=== PATIENT | female | born 1980 | race Caucasian/White ===

== ENCOUNTER 2021-11-30 20:39 | Emergency (ER) | payer BC, OTHER ==
--- NOTE | 2021-11-30 21:23 | RAD REPORT ---
EXAM DESCRIPTION: CT - Head Brain Wo Cont - 11/30/2021 9:12 pm CLINICAL HISTORY: Syncope, simple, normal neuro exam Headache, drowsiness COMPARISON: No comparisons TECHNIQUE: All CT scans are performed using dose optimization technique as appropriate and may inclu de automated exposure control or mA/KV adjustment according to patient size. FINDINGS: No intracranial hemorrhage, hydrocephalus or extra-axial fluid collection.No areas of brai n edema or evidence of midline shift. The paranasal sinuses and mastoids are clear. The calvarium is intact. IMPRESSION: No acute intracranial abnormality.
--- NOTE | 2021-11-30 21:24 | RAD REPORT ---
EXAM DESCRIPTION: RAD - Chest Single View - 11/30/2021 9:17 pm CLINICAL HISTORY: TRAUMA Chest pain. COMPARISON: No comparisons FINDINGS: Portable technique limits examination quality. The lungs are grossly clear. The heart is normal in size. No displaced fractures. IMPRESSION: No acute intrathoracic process suspected.
[2021-11-30 22:09] LABS: Hematocrit 35.6 % (36.0-45.0); Lymphocytes % 8.5 % (15.3-44.8); MCV 81.3 fL (80-100); MPV 7.4 fL (7.6-11.3); RBC Red Blood Cell Count 4.37 M/uL (3.86-4.86)
[2021-11-30 22:10] LABS: Absolute Lymphocytes (CBC) 0.8 K/uL (0.7-4.9)
[2021-11-30 22:21] LABS: Protime INR 1.03
[2021-11-30 22:34] LABS: ALT/SGPT 26 U/L (12-78); AST/SGOT 15 U/L (15-37); Albumin 4.3 g/dL (3.4-5.0); Alkaline Phosphatase 85 U/L (45-117); BUN Blood Urea Nitrogen 37 mg/dL (7-18); Bicarbonate 24 mmol/L (21-32); Bilirubin Direct 0.2 mg/dL (0-0.2); Bilirubin Total 0.5 mg/dL (0.2-1.0); CKMB Creatine Kinase MB < 1.0 ng/mL (1.0-3.6); Creatine Phosphokinase 101 U/L (26-192); Glomerular Filtration Rate 44 ml/min (=/>90); Glucose Level 113 mg/dL (74-106); Lipase 297 U/L (73-393); Magnesium 2.3 mg/dL (1.8-2.4); Protein, Total 7.7 g/dL (6.4-8.2); Sodium Level 133 mmol/L (136-145)
[2021-11-30 22:36] LABS: Potassium 2.9 mmol/L (3.5-5.1)
[2021-11-30 23:18] LABS: Urine Blood 1+ (Negative); Urine Glucose Negative (Negative); Urine Protein Trace (Negative); Urine pH 5.5 (5.0-7.0)
[2021-11-30] MEDS ORDERED: POTASSIUM CL SA 10 MEQ TAB PO ONE (23:27)
[2021-12-01 02:12] LABS: Potassium 3.3 mmol/L (3.5-5.1); Troponin High Sensitivity 5.8 pg/mL (<58.9)
--- NOTE | 2021-12-01 02:17 | EDPHYS ---
Physician Documentation [facility] Name: Beronica Lopez Age: 41 yrs Sex: Female : 1980 Arrival Date: 11/30/2021 Time: 20:42 Bed 4 Private MD: ED Physician Danny Whitten HPI: 11/30 21:02 This 41 yrs old Female presents to ER via Ambulatory with complaints of Passed Out sp3 Prior To Arrival, Head Injury-Adult, Syncope. 21:02 41-year-old female with a history of hypertension, anxiety, who has had recent blood sp3 pressure medication changes including increasing doses of amlodipine presents to the ED for syncope prior to arrival with loss of consciousness and mild forehead injury witnessed by family. No seizure activity reported. Patient had no presyncopal symptoms including headache, neck pain, chest pain, shortness breath, abdominal pain, nausea, vomiting, diarrhea, paresthesias, focal weakness, confusion, altered speech, any other significant findings on ROS. Currently patient feels "back to normal" is of no chest pain or headache currently. Patient states that she has been taking adequate p.o. intake and has been having urine output. There was no loss of bowel or bladder control reported no lacerations on the tongue or other oral injury.. Historical: - Allergies: 20:54 No Known Allergies; ld1 - Home Meds: 20:54 amlodipine 10 mg tab 1 tab once daily [Active]; venlafaxine 37.5 mg oral cp24 1 cap ld1 once daily [Active]; meloxicam 15 mg oral TbDi 1 tab once daily [Active]; lisinopril 40 mg Oral tab 1 tab once daily [Active]; chlorthalidone 25 mg Oral tab 1 tab once daily [Active]; - PMHx: 20:54 Hypertensive disorder; ld1 - PSHx: 20:54 None; ld1 - Immunization history:: Adult Immunizations up to date, Client reports having NOT received the Covid vaccine. - Social history:: Smoking status: Patient denies any tobacco usage or history of. Patient/guardian denies using alcohol. ROS: 21:04 Constitutional: Negative for fever, chills, and weight loss, Eyes: Negative for injury, sp3 pain, redness, and discharge, Neck: Negative for injury, pain, and swelling, Cardiovascular: Negative for chest pain, palpitations, and edema, Respiratory: Negative for shortness of breath, cough, wheezing, and pleuritic chest pain, Abdomen/GI: Negative for abdominal pain, nausea, vomiting, diarrhea, and constipation, Back: Negative for injury and pain, MS/Extremity: Negative for injury and deformity, Skin: Negative for injury, rash, and discoloration, Psych: Negative for depression, anxiety, suicide ideation, homicidal ideation, and hallucinations, Allergy/Immunology: Negative for hives, rash, and allergies, Endocrine: Negative for neck swelling, polydipsia, polyuria, polyphagia, and marked weight changes. 21:04 All other systems are negative. Exam: 21:04 Constitutional: This is a well developed, well nourished patient who is awake, alert, sp3 and in no acute distress. Head/Face: Normocephalic, atraumatic. Eyes: Pupils equal round and reactive to light, extra-ocular motions intact. Lids and lashes normal. Conjunctiva and sclera are non-icteric and not injected. Cornea within normal limits. Periorbital areas with no swelling, redness, or edema. ENT: Nares patent. No nasal discharge, no septal abnormalities noted. External auditory canals are clear. Oropharynx with no redness, swelling, or masses, exudates, or evidence of obstruction, uvula midline. Mucous membranes moist. Neck: Trachea midline, no thyromegaly or masses palpated, and no cervical lymphadenopathy. Supple, full range of motion without nuchal rigidity, or vertebral point tenderness. No Meningismus. Chest/axilla: Normal chest wall appearance and motion. Nontender with no deformity. No lesions are appreciated. Cardiovascular: Regular rate and rhythm with a normal S1 and S2. No gallops, murmurs, or rubs. Normal PMI, no JVD. No pulse deficits. Respiratory: Lungs have equal breath sounds bilaterally, clear to auscultation and percussion. No rales, rhonchi or wheezes noted. No increased work of breathing, no retractions or nasal flaring. Abdomen/GI: Soft, non-tender, with normal bowel sounds. No distension or tympany. No guarding or rebound. No evidence of tenderness throughout. Back: No spinal tenderness. No costovertebral tenderness. Full range of motion. Skin: Warm, dry with normal turgor. Normal color with no rashes, no lesions, and no evidence of cellulitis. MS/ Extremity: Pulses equal, no cyanosis. Neurovascular intact. Full, normal range of motion. Neuro: Awake and alert, GCS 15, oriented to person, place, time, and situation. Cranial nerves II-XII grossly intact. Motor strength 5/5 in all extremities. Sensory grossly intact. Cerebellar exam normal. Normal gait. Psych: Awake, alert, with orientation to person, place and time. Behavior, mood, and affect are within normal limits. 21:04 ECG was reviewed by the Attending Physician. EKG demonstrates normal sinus rhythm at 75 sp3 bpm with normal intervals, normal axis, nonspecific ST/T changes leads III, aVF and V3. Vital Signs: 20:51 BP 110 / 60; Pulse 81; Resp 20; Temp 98.6(TE); Pulse Ox 100% on R/A; Weight 99.79 kg; ld1 Height 5 ft. 3 in. (160.02 cm); Pain 0/10; 22:18 BP 119 / 74 Sitting (auto/); Pulse 71; aa9 22:20 BP 115 / 62 LA Supine (auto/); Pulse 65; aa9 22:23 BP 107 / 61 Standing (auto/); Pulse 87; aa9 07/01 00:15 BP 125 / 75; Pulse 64; Resp 20 S; Pulse Ox 97% on R/A; as6 01:03 BP 136 / 78; Pulse 67; Resp 16 S; Pulse Ox 100% on R/A; as6 02:24 BP 140 / 76; Pulse 67; Resp 17 S; Pulse Ox 99% on R/A; as6 06 20:51 Body Mass Index 38.97 (99.79 kg, 160.02 cm) ld1 Pk Coma Score: 11/30 20:51 Eye Response: spontaneous(4). Verbal Response: oriented(5). Motor Response: obeys ld1 commands(6). Total: 15. MDM: 20:53 Patient medically screened. sp3 21:04 Data reviewed: vital signs, nurses notes, EKG. sp3 21:05 ED course: 41-year-old female with syncope now resolved. We will work patient up sp3 including cardiac markers, routine labs, EKG, chest x-ray, CT scan of the head, and general observation. Normal neurological exam currently with no additional symptoms. Potential discharge if work-up is negative and patient remains asymptomatic.. 23:06 ED course: Patient's chemistry demonstrates hypokalemia at 2.9 and mild depression and sp3 sodium at 133. Creatinine is 1.5 and all of this demonstrates clear dehydration and lack of electrolyte consumption. We will hydrate and replenish potassium and recheck chemistries as well as repeat troponin at 1 AM and if patient is improved and troponin remains negative will discharge patient home to PCP follow-up.. 12/01 02:14 ED course: Daniel chemistries demonstrate normalized sodium and creatinine. Potassium sp3 still mildly depressed and we will give another 40 mEq of potassium p.o. prior to discharge. Repeat troponin negative. No other criteria met for admission and we will discharge patient home with PCP follow-up.. 11/30 21:00 Order name: Basic Metabolic Panel; Complete Time: 22:53 3 11/30 21:00 Order name: CBC with Diff; Complete Time: 22:25 3 11/30 21:00 Order name: CPK; Complete Time: 22:53 sp3 11/30 21:00 Order name: Ckmb; Complete Time: 22:53 3 11/30 21:00 Order name: Hepatic Function; Complete Time: 22:53 3 11/30 21:00 Order name: Lipase; Complete Time: 22:53 sp3 11/30 21:00 Order name: Magnesium; Complete Time: 22:53 3 11/30 21:00 Order name: Protime (+inr); Complete Time: 22:25 3 11/30 21:00 Order name: Ptt, Activated; Complete Time: 22:25 sp3 11/30 21:00 Order name: CT Head Brain wo Cont; Complete Time: 21:42 sp3 11/30 23:06 Order name: Chem 7: 1 AM; Complete Time: 02:14 sp3 11/30 23:06 Order name: Troponin High Sensitivity: 1 AM; Complete Time: 02:14 sp3 11/30 23:18 Order name: Urine Dipstick-Ancillary; Complete Time: 00:50 EDMS 11/30 23:32 Order name: Urine --Ancillary (enter results); Complete Time: 00:50 wm 11/30 21:00 Order name: EKG; Complete Time: 21:01 sp3 11/30 21:00 Order name: Cardiac monitoring; Complete Time: 21:02 sp3 11/30 21:00 Order name: EKG - Nurse/Tech; Complete Time: 21:02 sp3 11/30 21:00 Order name: IV Saline Lock; Complete Time: 21:44 sp3 11/30 21:00 Order name: Labs collected and sent; Complete Time: 22:11 sp3 11/30 21:00 Order name: NPO; Complete Time: 21:02 sp3 11/30 21:00 Order name: O2 Per Protocol; Complete Time: 21:02 sp3 11/30 21:00 Order name: O2 Sat Monitoring; Complete Time: 21: sp3 11/30 21:00 Order name: Urine Dipstick-Ancillary (obtain specimen); Complete Time: 23:20 sp3 11/30 21:00 Order name: XRAY Chest (1 view); Complete Time: 21:42 sp3 11/30 21:06 Order name: Orthostatics; Complete Time: 22:26 sp3 Administered Medications: 11/30 23:29 Drug: NS 0.9% 1000 ml Route: IV; Rate: 1 bolus; Site: left antecubital; 12/01 02:24 Follow up: Response: No adverse reaction; IV Status: Completed infusion; IV Intake: as6 1000ml 11/30 23:30 Drug: Potassium Chloride 40 mEq Route: PO; 9 12/01 02:24 Follow up: Response: No adverse reaction as6 02:21 Drug: Potassium Chloride 40 mEq Route: PO; as6 02:25 Follow up: Response: No adverse reaction as6 Disposition Summary: 12/01/21 02:17 Discharge Ordered Location: Home sp3 Condition: Stable sp3 Diagnosis - Syncope, Hypokalemia, Dehydration sp3 Followup: sp3 - With: Private Physician - When: Upon discharge from the Emergency Department - Reason: Continuance of care, Re-evaluation by your physician Discharge Instructions: - Discharge Summary Sheet sp3 - Dehydration, Adult sp3 - Syncope sp3 Forms: - Medication Reconciliation Form sp3 - Thank You Letter sp3 - Antibiotic Education sp3 - Prescription Opioid Use sp3 Signatures: Dispatcher [employer] EDMelony Garcia RN RN ld1 Danny Whitten MD MD sp3 Robert Rios, RN RN as6 Brianna Raymundo PA PA sb3 Shante La, RN RN aa9
--- NOTE | 2021-12-01 02:17 | ER ---
Nurse's Notes [facility] Name: Beronica Lopez Age: 41 yrs Sex: Female : 1980 Arrival Date: 11/30/2021 Time: 20:42 Bed 4 Private MD: Diagnosis: Syncope, Hypokalemia, Dehydration Presentation: 11/30 20:51 Chief complaint: Patient states: I was outside this evening, I began to feel ld1 sick/lightheaded, my vision began to turn black - pt fell and hit front of face - left eye socket. Reports possible syncope. Coronavirus screen: At this time, the client does not indicate any symptoms associated with coronavirus-19. Ebola Screen: No symptoms or risks identified at this time. Mechanism of Injury: resulted from a fall, from a standing position. Initial Sepsis Screen: Does the patient meet any 2 criteria? No. Patient's initial sepsis screen is negative. Does the patient have a suspected source of infection? No. Patient's initial sepsis screen is negative. Risk Assessment: Do you want to hurt yourself or someone else? Patient reports no desire to harm self or others. 20:51 Method Of Arrival: Ambulatory ld1 20:51 Acuity: JEFFREY 3 ld1 12/01 02:25 Onset of symptoms was November 30, 2021. as6 Triage Assessment: 11/30 20:54 General: Appears in no apparent distress. comfortable, Behavior is calm, cooperative, ld1 appropriate for age. Pain: Denies pain. EENT: No signs and/or symptoms were reported regarding the EENT system. Neuro: Level of Consciousness is awake, alert, obeys commands, Oriented to person, place, time, situation, Reports dizziness, a syncopal episode. Cardiovascular: Capillary refill < 3 seconds Patient's skin is warm and dry. Rhythm is sinus rhythm. Respiratory: Airway is patent Respiratory effort is even, unlabored. GI: Abdomen is round non-distended. : No signs and/or symptoms were reported regarding the genitourinary system. Derm: No signs and/or symptoms reported regarding the dermatologic system. Musculoskeletal: No signs and/or symptoms reported regarding the musculoskeletal system. Historical: - Allergies: 20:54 No Known Allergies; ld1 - Home Meds: 20:54 amlodipine 10 mg tab 1 tab once daily [Active]; venlafaxine 37.5 mg oral cp24 1 cap ld1 once daily [Active]; meloxicam 15 mg oral TbDi 1 tab once daily [Active]; lisinopril 40 mg Oral tab 1 tab once daily [Active]; chlorthalidone 25 mg Oral tab 1 tab once daily [Active]; - PMHx: 20:54 Hypertensive disorder; ld1 - PSHx: 20:54 None; ld1 - Immunization history:: Adult Immunizations up to date, Client reports having NOT received the Covid vaccine. - Social history:: Smoking status: Patient denies any tobacco usage or history of. Patient/guardian denies using alcohol. Screenin:01 Abuse screen: Denies threats or abuse. Denies injuries from another. Nutritional aa9 screening: No deficits noted. Tuberculosis screening: No symptoms or risk factors identified. 12/01 01:04 Fall Risk None identified. as6 Assessment: 11/30 21:01 General: Appears in no apparent distress. uncomfortable, Behavior is calm, cooperative, aa9 anxious, Reports "feeling uncomfortable". General:. Pain: Denies pain. Musculoskeletal:. 21:01 General: States "I was standing outside at around 6:45 PM, I felt lightheaded and aa9 everything went black, I hit my left eye socket and left knee.". 12/01 01:03 Reassessment: Patient appears in no apparent distress at this time. as6 Vital Signs: 11/30 20:51 BP 110 / 60; Pulse 81; Resp 20; Temp 98.6(TE); Pulse Ox 100% on R/A; Weight 99.79 kg; ld1 Height 5 ft. 3 in. (160.02 cm); Pain 0/10; 22:18 BP 119 / 74 Sitting (auto/); Pulse 71; aa9 22:20 BP 115 / 62 LA Supine (auto/); Pulse 65; aa9 22:23 BP 107 / 61 Standing (auto/); Pulse 87; aa9 12/01 00:15 BP 125 / 75; Pulse 64; Resp 20 S; Pulse Ox 97% on R/A; as6 01:03 BP 136 / 78; Pulse 67; Resp 16 S; Pulse Ox 100% on R/A; as6 02:24 BP 140 / 76; Pulse 67; Resp 17 S; Pulse Ox 99% on R/A; as6 11/30 20:51 Body Mass Index 38.97 (99.79 kg, 160.02 cm) ld1 [place] Coma Score: 11/30 20:51 Eye Response: spontaneous(4). Verbal Response: oriented(5). Motor Response: obeys ld1 commands(6). Total: 15. ED Course: 20:42 Patient arrived in ED. bp1 20:46 Robert Rios, CARLOS is Primary Nurse. as6 20:46 Danny Whitten MD is Attending Physician. sp3 20:54 Triage completed. ld1 20:54 Arm band placed on right wrist. ld1 21:14 CT Head Brain wo Cont In Process Unspecified. EDMS 21:18 XRAY Chest (1 view) In Process Unspecified. EDMS 21:47 Inserted saline lock: 20 gauge in left antecubital area, using aseptic technique. as6 22:36 Notified ED physician of a critical lab result(s). Potassium 2.9. vc1 12/01 01:04 Bed in low position. Call light in reach. Side rails up X 1. Client placed on as6 continuous cardiac and pulse oximetry monitoring. NIBP monitoring applied. Warm blanket given. 02:25 No provider procedures requiring assistance completed. IV discontinued, intact, as6 bleeding controlled, No redness/swelling at site. Pressure dressing applied. Administered Medications: 11/30 23:29 Drug: NS 0.9% 1000 ml Route: IV; Rate: 1 bolus; Site: left antecubital; aa9 12/01 02:24 Follow up: Response: No adverse reaction; IV Status: Completed infusion; IV Intake: as6 1000ml 11/30 23:30 Drug: Potassium Chloride 40 mEq Route: PO; aa9 12/01 02:24 Follow up: Response: No adverse reaction as6 02:21 Drug: Potassium Chloride 40 mEq Route: PO; as6 02:25 Follow up: Response: No adverse reaction as6 Medication: 02:25 VIS not applicable for this client. as6 Intake: 02:24 IV: 1000ml; Total: 1000ml. as6 Outcome: 02:17 Discharge ordered by . sp3 02:25 Discharged to home ambulatory, with family. as6 02:25 Condition: stable 02:25 Discharge instructions given to patient, Instructed on discharge instructions, follow up and referral plans. Demonstrated understanding of instructions, follow-up care. 02:26 Patient left the ED. as6 Signatures: Dispatcher [employer] EDMS Winifred De León Lauren, RN RN ld1 Danny Whitten MD MD sp3 Robert Rios RN RN as6 Joie Ziegler RN RN vc1 Shante La RN RN aa9
[2021-12-01] MEDS ORDERED: POTASSIUM CL SA 10 MEQ TAB PO ONE (02:23)
[2021-12-01 03:30] VITALS: TEMP 98.6
[2021-12-01 03:39] VITALS: BP 140/76; O2SAT 99
--- NOTE | 2021-12-01 09:49 | EKG ---
Test Date: 2021-11-30 Test Time: 20:58:22 Construction Safety Consultant: JORGE MEASUREMENT RESULTS: Intervals: Rate: 75 [place]: 158 QRSD: 90 QT: 402 QTc: 448 [place]: P: 29 [place]: 158 QRS: 37 T: 1 INTERPRETIVE STATEMENTS: Normal sinus rhythm Nonspecific T wave abnormality Abnormal ECG No previous ECG available for comparison Electronically Signed On 12-01-21 09:48:34 CDT by Armand Munguia
== END 2021-12-01 02:26 | disposition home or self-care (01) ==
LOC: ER 20:39
DX: E87.6 Hypokalemia (principal); E86.0 Dehydration; I10 Essential (primary) hypertension
CPT/HCPCS: 36415; 70450; 71045; 80048; 80076; 81003; 81025; 82550; 82553; 83690; 83735; 84484; 85025; 85610; 85730; 93005; 96360; 96361; 99284

== ENCOUNTER 2022-02-06 16:17 | Emergency (ER) | payer BC, SELFPAY ==
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
[2022-02-06] MEDS ORDERED: dexAMETHasone 4 MG/ML VIAL ONE (17:51)
[2022-02-06 18:16] LABS: Absolute Lymphocytes (CBC) 0.7 K/uL (0.7-4.9); Hematocrit 30.7 % (36.0-45.0); Lymphocytes % 5.9 % (15.3-44.8); MCV 85.4 fL (80-100); MPV 6.7 fL (7.6-11.3)
[2022-02-06 18:30] LABS: Potassium 3.7 mmol/L (3.5-5.1)
[2022-02-06] MEDS ORDERED: NA CHLORIDE 0.9% 1,000 ML ONE (18:58)
[2022-02-06] MEDS ORDERED: MORPHINE 4 MG/ML SYR ONE ×3 (19:00→21:18)
[2022-02-06] MEDS ORDERED: ONDANSETRON 4 MG/2 ML VIAL ONE ×2 (19:00→21:18)
--- NOTE | 2022-02-06 20:15 | RAD REPORT ---
EXAM DESCRIPTION: CT - Soft Tissue Neck W/Contr CLINICAL HISTORY: r o peritonsilar abscess COMPARISON: No comparisons TECHNIQUE All CT scans are performed using dose optimization technique as appropriate and may includ e automated exposure control or mA/KV adjustment according to patient size. FINDINGS: Nasopharyngeal tissues are normal in appearance. Fossa Rosenmller are normal. Left-sided 15 mm peritonsillar abscess. The airway is widely patent. Tongue base structures are lily l. Epiglottis and aryepiglottic folds are normal. Piriform sinuses are well aerated. The vocal cords are normal in appearance. Salivary glands are normal in appearance. Upper lung garcia are clear. Included intracranial contents are unremarkable. IMPRESSION: Small 15 mm left peritonsillar abscess.
[2022-02-06] MEDS ORDERED: LIDOCAINE VISCOUS 2% SOLN 15 ML UDC ONE (20:52)
[2022-02-06] MEDS ORDERED: MAGNES/ALUMIN/SIMET 30ML UCUP ONE (20:52)
[2022-02-06] MEDS ORDERED: NA CHLORIDE 0.9% 50 ML ONE (20:53)
[2022-02-06] MEDS ORDERED: CEFTRIAXONE 1000 MG/VIAL ONE (20:53)
--- NOTE | 2022-02-06 21:11 | ER ---
Nurse's Notes [facility] Name: Beronica Lopez Age: 41 yrs Sex: Female : 1980 Arrival Date: 02/06/2022 Time: 16:25 Bed Treatment Private MD: Diagnosis: Peritonsillar abscess Presentation: 02/06 16:33 Chief complaint: Patient states: " Sent me to the ER for an ENT consult. thinks ld1 I have an infection and may need an MRI." Pt c/o pain in left jaw/ear/throat. Coronavirus screen: At this time, the client does not indicate any symptoms associated with coronavirus-19. Ebola Screen: No symptoms or risks identified at this time. 16:33 Method Of Arrival: Ambulatory ld1 16:34 Initial Sepsis Screen: Does the patient meet any 2 criteria? No. Patient's initial ld1 sepsis screen is negative. Does the patient have a suspected source of infection? No. Patient's initial sepsis screen is negative. Risk Assessment: Do you want to hurt yourself or someone else? Patient reports no desire to harm self or others. Onset of symptoms was February 06, 2022 at 16:36. 16:34 Acuity: JEFFREY 3 ld1 Triage Assessment: 16:34 General: Appears in no apparent distress. comfortable, Behavior is calm, cooperative, ld1 appropriate for age. Pain: Complains of pain in left jaw Pain does not radiate. Pain currently is 8 out of 10 on a pain scale. Pain: EENT: No signs and/or symptoms were reported regarding the EENT system. Throat is clear. Neuro: Level of Consciousness is awake, alert, obeys commands, Oriented to person, place, time, situation. Cardiovascular: Capillary refill < 3 seconds Patient's skin is warm and dry. Respiratory: Airway is patent Respiratory effort is even, unlabored. GI: Abdomen is round non-distended. : No signs and/or symptoms were reported regarding the genitourinary system. Derm: No signs and/or symptoms reported regarding the dermatologic system. Musculoskeletal: No signs and/or symptoms reported regarding the musculoskeletal system. 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 - Social history:: Smoking status: Patient denies any tobacco usage or history of. Patient/guardian denies using alcohol. Screenin:15 Abuse screen: Denies threats or abuse. Denies injuries from another. Nutritional kb3 screening: No deficits noted. Tuberculosis screening: No symptoms or risk factors identified. Fall Risk None identified. Assessment: 18:00 General: Pt reports sore throat x1 week. Was referred to ED today after being seen by kb3 PCP. Pt reports mild difficulty swallowing due to pain and swelling of left tonsil. 18:15 General: Appears in no apparent distress. uncomfortable, Behavior is calm, cooperative. kb3 Respiratory: Airway is patent Breath sounds are clear bilaterally. 18:15 EENT: Throat is reddened has enlarged tonsils on left Left enlarge tonsil is covered in kb3 patchy whit exudate with foul breath odor. 19:46 General: Pt ambulatory to restroom without distress. kb3 21:00 General: Dr Diaz at bedside to I\\T\\D peritonsillar abscess at bedside. kb3 Vital Signs: 16:33 BP 130 / 86; Pulse 102; Resp 18; Pulse Ox 97% on R/A; ld1 20:05 BP 143 / 78; Pulse 95; Resp 20; Pulse Ox 100% ; kb3 21:20 BP 131 / 71; Pulse 78; Resp 18; Pulse Ox 98% ; Pain 5/10; kb3 ED Course: 16:25 Patient arrived in ED. am2 16:25 Caryn Mckeon FNP-C is PHCP. kb 16:25 Vicente Aceves MD is Attending Physician. kb 16:34 Arm band placed on right wrist. ld1 16:36 Triage completed. ld1 17:49 Harmony Gaines, RN is Primary Nurse. kb3 17:57 Initial lab(s) drawn, by me, sent to lab. Inserted saline lock: 20 gauge in right vg1 antecubital area, using aseptic technique. Blood collected. 18:15 Patient has correct armband on for positive identification. Bed in low position. Call kb3 light in reach. 18:15 No provider procedures requiring assistance completed. kb3 18:39 Warm blanket given. Pillow given. kb3 20:07 Patient moved back from MA. kb3 21:11 Michelle Diaz MD is Referral Physician. kb 21:26 IV discontinued, intact, bleeding controlled, No redness/swelling at site. kb3 Administered Medications: 18:02 Drug: Decadron - Dexamethasone 10 mg Route: IVP; Site: right antecubital; vg1 18:58 Follow up: Response: No adverse reaction kb3 18:50 Drug: morphine 4 mg Route: IVP; Infused Over: 4 mins; Site: right antecubital; kb3 19:30 Follow up: Response: No adverse reaction; Pain is decreased kb3 18:55 Drug: Zofran (Ondansetron) 4 mg Route: IVP; Site: right antecubital; kb3 19:30 Follow up: Response: No adverse reaction kb3 18:58 Drug: NS 0.9% 1000 ml Route: IV; Rate: 1000 ml; Site: right antecubital; kb3 20:30 Follow up: Response: No adverse reaction; IV Status: Completed infusion; IV Intake: kb3 1000ml 20:45 Drug: morphine 4 mg Route: IVP; Infused Over: 4 mins; Site: right antecubital; kb3 21:00 Follow up: Response: No adverse reaction; Pain is unchanged, physician notified kb3 20:45 Drug: GI Cocktail without - (Maalox Suspension 30 ml, Lidocaine Liquid 2 % 15 kb3 ml) Route: PO; 21:00 Follow up: Response: No adverse reaction; Pain is unchanged, physician notified kb3 21:00 Drug: Rocephin (cefTRIAXone) 1 grams Route: IV; Rate: calculated rate; Site: right kb3 antecubital; 21:24 Follow up: Response: No adverse reaction; IV Status: Completed infusion; IV Intake: [id number] 21:12 Drug: morphine 4 mg Route: IVP; Infused Over: 4 mins; Site: right antecubital; kb3 21:24 Follow up: Response: No adverse reaction; Pain is decreased kb3 21:12 Drug: Zofran (Ondansetron) 4 mg Route: IVP; Site: right antecubital; kb3 21:24 Follow up: Response: No adverse reaction kb3 Medication: 18:15 VIS not applicable for this client. kb3 Intake: 20:30 IV: 1000ml; Total: 1000ml. kb3 21:24 IV: 50ml; Total: 1050ml. kb3 Outcome: 21:10 Discharge ordered by MD. kb 21:26 Discharged to home ambulatory. kb3 21:26 Condition: good 21:26 Discharge instructions given to patient, family, Instructed on discharge instructions, follow up and referral plans. medication usage, Demonstrated understanding of instructions, follow-up care, medications, Prescriptions given X 3. 21:28 Patient left the ED. kb3 Signatures: Caryn Mckeon, ALBERT-C INVESTIGATOR FRAUD-Beronica Arellano am2 Joan Andujar, RN RN vg1 Melony Ba, RN RN ld1 Harmony Gaines, RN RN kb3 Corrections: (The following items were deleted from the chart) 16:36 16:34 Allergies: Ibudone; ld1 ld1
--- NOTE | 2022-02-06 21:11 | EDPHYS ---
Physician Documentation [facility] Name: Beronica Lopez Age: 41 yrs Sex: Female : 1980 Arrival Date: 02/06/2022 Time: 16:25 Bed Treatment Private MD: ED Physician Vicente Aceves HPI: 02/06 20:22 This 41 yrs old Female presents to ER via Ambulatory with complaints of Sore Throat. kb 20:22 The patient presents with sore throat. The patient describes throat pain as constant. kb Onset: The symptoms/episode began/occurred 1 week(s) ago, and became worse. Severity of symptoms: At their worst the symptoms were moderate, in the emergency department the symptoms are unchanged. Modifying factors: The symptoms are alleviated by nothing, the symptoms are aggravated by swallowing, Patient's oral intake status: limited fluid intake, limited food intake. Associated signs and symptoms: Pertinent positives: dysphagia, Sore throat. The patient has not experienced similar symptoms in the past. The patient has been recently seen by a physician: the patient's primary care provider, earlier today, with similar presenting complaints, and was sent to the [facility] Emergency Department for further evaluation. Pt reports sore throat that started a week ago and has gotten worse. States she went to PCP today and was told to come to the ER for possible abscess. . 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 - Social history:: Smoking status: Patient denies any tobacco usage or history of. Patient/guardian denies using alcohol. ROS: 20:22 Constitutional: Negative for fever, chills, and weight loss. kb 20:22 ENT: Positive for sore throat. 20:22 All other systems are negative. Exam: 20:22 Constitutional: This is a well developed, well nourished patient who is awake, alert, kb and in no acute distress. Head/Face: Normocephalic, atraumatic. Cardiovascular: Regular rate and rhythm with a normal S1 and S2. No gallops, murmurs, or rubs. No pulse deficits. Respiratory: Respirations even and unlabored. No increased work of breathing. Talking in full sentences Abdomen/GI: Soft, non-tender. No distention Skin: Warm, dry with normal turgor. Normal color. MS/ Extremity: Pulses equal, no cyanosis. Neurovascular intact. Full, normal range of motion. Neuro: Awake and alert, GCS 15, oriented to person, place, time, and situation. Moves all extremities. Normal gait. Psych: Awake, alert, with orientation to person, place and time. Behavior, mood, and affect are within normal limits. 20:22 ENT: Posterior pharynx: Airway: normal, no evidence of obstruction, Tonsils: enlarged on the left, with erythema, with exudate, swelling, that is moderate, erythema, that is moderate, exudate, that is marked, peritonsillar mass, is noted on left. Vital Signs: 16:33 BP 130 / 86; Pulse 102; Resp 18; Pulse Ox 97% on R/A; ld1 20:05 BP 143 / 78; Pulse 95; Resp 20; Pulse Ox 100% ; kb3 21:20 BP 131 / 71; Pulse 78; Resp 18; Pulse Ox 98% ; Pain 5/10; kb3 MDM: 16:35 Patient medically screened. kb 20:19 Data reviewed: vital signs, nurses notes. Data interpreted: Pulse oximetry: on room air kb is 100 %. Interpretation: normal. Counseling: I had a detailed discussion with the patient and/or guardian regarding: the historical points, exam findings, and any diagnostic results supporting the discharge/admit diagnosis, lab results, radiology results. Physician consultation: Michelle Diaz MD was contacted at 20:22, and will see patient in ED, shortly. 20:24 ED course: No trismus noted. Slight hot potato voice.. kb 21:09 ED course: Dr Diaz performed I\T\D of peritonsillar abscess. Will see pt for follow up in kb the office in one week. 02/06 18:26 Order name: Group A Streptococcus Rapid Sc; Complete Time: 18:30 EDMS 02/06 18:27 Order name: CBC with Automated Diff; Complete Time: 18:30 EDMS 02/06 18:30 Order name: Basic Metabolic Panel; Complete Time: 18:34 EDMS 02/06 20:15 Order name: CT; Complete Time: 20:16 EDMS 02/06 21:14 Order name: Throat Culture EDMS 02/06 16:35 Order name: IV Start; Complete Time: 18:06 kb 02/06 20:34 Order name: Misc. Order: set up for Dr Diaz - #15 scalpal, suction setup with yaunker; Complete Time: 21:16 Administered Medications: 18:02 Drug: Decadron - Dexamethasone 10 mg Route: IVP; Site: right antecubital; vg1 18:58 Follow up: Response: No adverse reaction kb3 18:50 Drug: morphine 4 mg Route: IVP; Infused Over: 4 mins; Site: right antecubital; kb3 19:30 Follow up: Response: No adverse reaction; Pain is decreased kb3 18:55 Drug: Zofran (Ondansetron) 4 mg Route: IVP; Site: right antecubital; kb3 19:30 Follow up: Response: No adverse reaction kb3 18:58 Drug: NS 0.9% 1000 ml Route: IV; Rate: 1000 ml; Site: right antecubital; kb3 20:30 Follow up: Response: No adverse reaction; IV Status: Completed infusion; IV Intake: kb3 1000ml 20:45 Drug: morphine 4 mg Route: IVP; Infused Over: 4 mins; Site: right antecubital; kb3 21:00 Follow up: Response: No adverse reaction; Pain is unchanged, physician notified kb3 20:45 Drug: GI Cocktail without - (Maalox Suspension 30 ml, Lidocaine Liquid 2 % 15 kb3 ml) Route: PO; 21:00 Follow up: Response: No adverse reaction; Pain is unchanged, physician notified kb3 21:00 Drug: Rocephin (cefTRIAXone) 1 grams Route: IV; Rate: calculated rate; Site: right kb3 antecubital; 21:24 Follow up: Response: No adverse reaction; IV Status: Completed infusion; IV Intake: [id number] 21:12 Drug: morphine 4 mg Route: IVP; Infused Over: 4 mins; Site: right antecubital; kb3 21:24 Follow up: Response: No adverse reaction; Pain is decreased kb3 21:12 Drug: Zofran (Ondansetron) 4 mg Route: IVP; Site: right antecubital; kb3 21:24 Follow up: Response: No adverse reaction kb3 Disposition Summary: 02/06/22 21:10 Discharge Ordered Location: Home kb Condition: Stable kb Diagnosis - Peritonsillar abscess kb Followup: kb - With: Emergency Department - When: As needed - Reason: Worsening of condition Followup: kb - With: Private Physician - When: 2 - 3 days - Reason: Recheck today's complaints, Continuance of care, Re-evaluation by your physician Followup: kb - With: Michelle Diaz MD - When: 1 week - Reason: Recheck today's complaints, Continuance of care Discharge Instructions: - Discharge Summary Sheet kb - Peritonsillar Abscess, [id number] kb Forms: - Medication Reconciliation Form kb - Thank You Letter kb - Antibiotic Education kb - Prescription Opioid Use kb Prescriptions: - Augmentin 875-125 mg Oral Tablet - take 1 tablet by ORAL route every 12 hours for 10 days; 20 tablet; Refills: 0, kb Product Selection Permitted - Tramadol 50 mg Oral Tablet - take 1 tablet by ORAL route every 8 hours as needed; 12 tablet; Refills: 0, kb Product Selection Permitted - Medrol ([place]) 4 mg Oral Tablets, Dose Pack - take 1 tablet by ORAL route as directed - follow package instructions; 1 kb packet; Refills: 0, Product Selection Permitted Addendum: 02/07/2022 22:33 Co-signature as Attending Physician, Vicente Aceves MD. r n Signatures: Dispatcher [employer] Caryn Noriega, INSTRUMENT PERSON-C INSTRUMENT PERSON-Vicente Padilla MD MD rn Garcia, Victoria RN RN vg1 Melony Ba RN RN ld1 Harmony Gaines RN RN kb3 Corrections: (The following items were deleted from the chart) 02/06 16:36 16:34 Allergies: Ibudone; ld1 ld1
[2022-02-06] MEDS ORDERED: SILVER NITRATE 1 APPL TOP ONE (21:13)
[2022-02-07 01:21] VITALS: BP 131/71; O2SAT 98
== END 2022-02-06 21:28 | disposition home or self-care (01) ==
LOC: SUPCPDRO 16:17 → ER 16:17
PROC: 0C9PXZZ Drainage of Tonsils, External Approach (ICD-10-PCS; principal; 2022-02-06)
DX: J36 Peritonsillar abscess (principal); I10 Essential (primary) hypertension; F32.A Depression, unspecified
CPT/HCPCS: 36415; 70491; 80048; 85025; 87070; 87081; 96361; 96365; 96375; 99284; J1100; J2405; J7030; Q9967